=== PATIENT | female | born 1955 ===

== ENCOUNTER 2025-01-15 13:22 | Outpatient (AMB) | payer OTHER, SELFPAY ==
--- NOTE | 2025-01-15 13:31 | A.OFFVIS_ITS ---
Intake Visit Reasons: Occipital Neuralgia Allergies codeine Allergy (Unknown, Verified 01/11/25 08:01) Unknown Medication List - Last Reconciled 01/15/25 by Judah Cardona MD cyclobenzaprine 5 mg PO BEDTIME PRN gabapentin 300 mg PO BID insulin glargine (Lantus Solostar U-100 Insulin) 20 units subcut QAM levothyroxine 50 mcg PO DAILY lisinopril 10 mg PO DAILY meloxicam 15 mg PO DAILY tramadol 50 mg PO Q6H PRN HPI Comments Details: this is a 69-year-old woman with a history of hypertension, type 2 diabetes, hypothyroidism, fibromyalgia and osteoarthritis with multiple joint pain specially in her knees and lower back who developed sharp shooting brief right posterior occipital pains about 2 months ago. They lasted for a week and have subsided. She gets some mild low-level throbbing sensations in the scalp mostly on the right side and on the top of the head and is concerned that the pain might come back. She was given right occipital nerve block that seemed to help for a few hours and then took ketorolac 10 mg daily for 5 days. There are no other associated symptoms. [facility] Medical History (Updated 01/15/25 @ 13:55 by Judah Cardona MD) Fibromyalgia Occipital neuralgia Review of Systems Const Reports headache(s) ENT Reports headache(s) and Reports neck pain Musc Reports abnormal gait, Reports back pain, Reports myalgias, Reports arthralgias and Reports neck pain Neuro Reports abnormal gait and Reports headache(s) Physical Exam Neuro Other: ?Mini Mental Status Exam Level of Consciousness:?Alert.? Orientation:?Knows correct year, month, date, day and season.?Knows correct city, county and state. Knows correct location and floor.? Registration:?Able to register 3 objects.? Attention:?Serial 7's performed accurately.? Recall:?Able to recall 3 out of 3 objects.? Language:?Normal spontaneous speech, fluency, repetition, naming, comprehension, reading, and writing.? Total Score:?30/30.? Neurological Abnormal neurological findings:??none.? Mental Status:?Alert and oriented X 3.?Normal attention, orientation, memory, and affect.? Cranial Nerves:?Pupils are equal, round and reactive to light. Fundoscopy shows normal disc bilaterally. External occular muscles are intact. Visual bailey are full, no ptosis. Face is symmetrical, no facial weakness or droop. Facial sensations are normal. Tongue protrudes in midline. Palate elevates s ymmetrically. Shoulder shrugging is normal.? Motor Examination:?Normal muscle tone, bulk and strength.?No atrophy or fasciculations.?No drift of the extended upper extremities.?Deep tendon reflexes are 2+.?Plantars are flexor.? Motor Strength:? Proximal Muscles (out of 5):?5 Distal Muscles (out of 5):?5 Neck Flexors (out of 5):?5 Neck Extensors (out of 5):?5 Deltoid (out of 5):?5 Biceps (out of 5):?5 Triceps (out of 5):?5 Serratus Anterior (out of 5):?5 Wrist Extensors (out of 5):?5 APB (out of 5):?5 Finger Spread (out of 5):?5 Ileopsoas (out of 5):?5 Quadriceps (out of 5):?5 Hamstrings (out of 5):?5 Tibialis Anterior (out of 5):?5 Peronei (out of 5):?5 EDB (out of 5):?5 Gastrocnemius (out of 5):?5 Straight Leg Raising:?90 degrees.? Sensory Exam:?Normal light touch, temperature, pinprick, vibration and joint-position sensations.?Rhomberg sign is absent.? Coordination:?No ataxia,?no titubation,?[id number], [id number] test, and rapid alternating movements were normal.? Gait Exam:? She is in a wheelchair today but can walk with a 4 prong cane.? Cerebellar Signs:?[id number] and deuk-[id number] is normal.?No dysdiadochokinesia.? Extrapyramidal System:?No tremor or?rigidity, normal facial expressions.?No bradykinesia. No bradyphrenia. Normal arm swing and posture. No propulsion or retropulsion.? Speech:?Normal,?no dysphasia or dysarthria.? General Examination GENERAL APPEARANCE:??normal,?in no acute distress?,?normal,?in no acute distress.? HEAD:??normocephalic,?atraumatic.? EYES:??sclera non-icteric,?conjunctiva clear.? EARS:??auditory canal clear,?tympanic membrane intact, clear.? NOSE:??no lesions.? ORAL CAVITY:??gums normal,?mucosa moist,?no lesions.? THROAT:??clear.? NECK/THYROID:??no cervical lymphadenopathy,?thyroid normal,?neck supple, full range of motion,?no carotid bruit.? SKIN:??no rashes,?no significant birthmarks.? HEART:??S1, S2 normal,?no murmurs?,?S1, S2 normal,?no murmurs.? LUNGS:??clear anteriorly and posteriorly?,?clear anteriorly and posteriorly.? CHEST:??no gross rib deformity,?clear to auscultation.? BACK:??normal exam of spine.? MUSCULOSKELETAL:??normal.? EXTREMITIES:??no edema?,?no edema.? PERIPHERAL PULSES:??normal.? PSYCH:??alert, oriented,?cognitive function intact,?cooperative with exam?,?alert, oriented,?cognitive function intact,?cooperative with exam.? Assessment & Plan Assessment & Plan (1) Fibromyalgia: Code(s): M79.7 - Fibromyalgia Category: Medical (2) Muscle tension headache: Comment: question right occipital neuralgia Code(s): G44.209 - Tension-type headache, unspecified, not intractable Category: Medical Plan amitriptyline 10mg hs Medications: New amitriptyline 10 mg PO BEDTIME 30 tabs 1RF 30 days Coding Level of Care Code New Pt Level 5 (00534) Diagnoses Fibromyalgia M79.7 Muscle tension headache G44.209
--- OUTSIDE RECORDS SUMMARY | 2025-01-15 18:42 | XMS_ITS | Clinical Summary ---
Author Organization [facility] [address] [facility] lding Address [address] [place] [address] Phone Care Team Providers Care Biological Plant Operator Name Role Phone Carline Brink MD Primary Care Prov ider Allergies Active Allergy Reactions Criticality Noted Date Comments Codeine 12/20/2005 Medications blood-glucose calib. control (BLOOD-GLUCOSE CALIBRAT CONTROL [facility]) USE DIRECTED 01/29/20 20 Active cyclobenzaprine (FLEXERIL) 5 mg tablet Take 1 Tablet by mouth daily as needed for Muscle spasms for up to 50 doses. 04/30/19 23 Active hydrocortisone (ANUSOL-HC) [address] 1 Suppository rectally 2 times daily for 10 days. 04/18/19 24 Active fluticasone propionate (FLONASE) 50 mcg/actuation nasal spray Administer 2 sprays into each nostril 1 (one) time each day. Shake gently. Before first use, prime pump. After use, clean tip and replace cap. 16 g 5 08/21/19 25 026 Active lisinopriL (PRINIVIL,ZESTR IL) 10 mg tablet Take 1 tablet (10 mg total) by mouth 1 (one) time each day. 90 tablet 1 09/21/19 25 Active blood-glucose meter (Accu-Chek Guide Glucose Meter) miscIndications :Type 2 diabetes mellitus with obesity USE DIRECTED TO TEST BLOOD SUGAR TWO (2) TIMES A DAY. E11.69 - REPLACES ONETOUCH 1 kit 09/26/19 25 Active blood sugar diagnostic (Accu-Chek Guide test strips) test stripIndication s:Type 2 diabetes mellitus with obesity USE DIRECTED TO TEST BLOOD SUGAR TWO (2) TIMES A DAY. E11.69 - REPLACES ONETOUCH 100 each 09/26/19 Active Accu-Chek Softclix LancetsIndicati ons:Type 2 diabetes mellitus with obesity USE DIRECTED TO TEST BLOOD SUGAR TWO (2) TIMES A DAY. E11.69 - REPLACES ONETOUCH 100 each 09/26/19 25 Active meloxicam (MOBIC) 15 mg tablet Take 1 tablet (15 mg total) by mouth 1 (one) time each day. 90 tablet 1 10/04/19 Active gabapentin (NEURONTIN) 300 mg capsule Take 1 capsule (300 mg total) by mouth 2 (two) times a day. 180 capsule 1 10/16/19 Active traMADoL (ULTRAM) 50 mg tabletIndicatio ns:Fibromyalgia ,Right shoulder pain, unspecified chronicity Take 1 tablet (50 mg total) by mouth every 6 (six) hours if needed (PAIN). Max Daily Amount: 200 mg 60 tablet 11/13/19 Active insulin glargine (Lantus U-100 Insulin) 100 unit/mL injection Inject 20 Units under the skin 1 (one) time each day in the morning. Inject daily as directed. 20 mL 2 12/04/19 Active pen needle, diabetic 32 gauge x 5/32 needle Inject under the skin 1 (one) time each day. USE TO INJECT INSULIN DIRECTED 90 each 12/04/19 Active levothyroxine (SYNTHROID, LEVOTHROID) 50 mcg tablet Take 1 tablet by mouth once daily 90 tablet 01/02/20 Active levothyroxine (SYNTHROID, LEVOTHROID) 50 mcg tablet Take 1 tablet (50 mcg total) by mouth 1 (one) time each day. 90 tablet 1 07/07/19 25 025 Discontinued Active Problems Problem Noted Date Diagnosed Date Microalbuminuria 05/21/2024 Primary hypertension 11/15/2023 Heart murmur 06/07/2022 Type 2 diabetes mellitus with obesity 02/15/2019 Overview (11/07/2024): 11/07/24 Regulatory IMO Update Hot flashes 09/04/2018 Hypothyroidism 08/14/2018 Pseudophakia 09/05/2017 Type 2 diabetes mellitus with hyperlipidemia 02/2016 Obesity (BMI 30-39.9) 08/07/2015 Chronic low back pain 06/25/2015 Fibromyalgia 06/25/2015 Primary osteoarthritis of both knees 06/25/2015 Encounters Date Type Department Care Team Description 01/14/2025 Telephone Adult [address] [phone] Carline Magaña MD 01/07/2025 Results Follow-Up [address] [phone] Vidhya Cheema PA 01/01/2025 3:55 PM EST Lab Draw Station [address] [phone] Hypothyroidism, unspecified type; Type 2 diabetes mellitus with hyperlipidemia (CMS/HCC V24, CMS/HCC V28); Anemia, unspecified type; Primary hypertension 01/01/2025 2:45 PM EST Office Visit [address] [phone] Vidhya Cheema PA Nonintractable headache, unspecified chronicity pattern, unspecified headache type (Primary Dx); Screening for malignant neoplasm of colon; Fibromyalgia; Hypothyroidism, unspecified type; Primary hypertension; Type 2 diabetes mellitus with hyperlipidemia (CMS/HCC V24, CMS/HCC V28); Microalbuminuria; Chronic low back pain, unspecified back pain laterality, unspecified whether sciatica present; Anemia, unspecified type from Last 3 Months Immunizations Immunization Administration Dates Next Due Pfizer SARS-CoV-2 COVID-19, mRNA, LNP-S, preservative free 06/10/2020 Pneumococcal polysaccharide 23 valent (Pneumovax 23) 2yo and older 03/09/2016 Tdap Tetanus diptheria acell ular pertussis (Boostrix; Adacel) 7yo and older 05/18/2024 Surgical History Surgery Date Site/Laterality Comments HYSTERECTOMY 2-1989 PROCEDURE: HISTORICAL HYSTERECTOMY; COMMENT: tumors CATARACT EXTRACTION 2015 PROCEDURE: HISTORICAL CATARACT REMOVAL; COMMENT: OU Medical History Medical History Date Comments Anemia, unspecified DX:Anemia, u nspecified DM2 (diabetes mellitus, type 2) [place] [place] [facility] [place] 12/08/2015 DX:DM2 (diabetes mellitus, type 2) ([facility]) DM2 (diabetes mellitus, type 2) [place] [place] [facility] [place] 12/08/2015 DX:DM2 (diabetes mellitus, type 2) ([facility]) Diabetes mellitus type 2 in obese 03/10/2016 DX:Diabetes mellitus type 2 in obese Type 2 diabetes mellitus wit h hyperlipidemia ([facility] [place] [facility] [place]) 03/10/2016 DX:Type 2 diabetes mellitus with hyperlipidemia ([facility]) Hypothyroidism 08/14/2018 DX:Hypothyroidis m Weight loss DX:Weight loss Fatigue DX:Fatigue Primary osteoarthritis of both knees DX:Primary osteoarthritis of both knees Primary hypertension 09/20/2023 DX:Primary hypertension Osteoarthritis of back Family History Medical History Relation Name Comments Diabetes Brother 1 Diabetes Brother 2 Hypertension Brother 2 Diabetes Brother 3 Glaucoma Brother 3 Hypertension Brother 3 Lung cancer Brother 3 Hypertension Brother 4 No Known Problems Brother 5 Asthma Daughter Thyroid disease Daughter Other cancer Father mouth No Known Problems Maternal Grandfather No Known Problems Maternal Grandmother Lung cancer Mother No Known Problems Paternal Grandfather No Known Problems Paternal Grandmother Diabetes Sister 1 Glaucoma Sister 1 Hypertension Sister 1 Diabetes Sister 2 Hypertension Sister 2 Asthma Son Blindness Neg Hx Breast cancer Neg Hx Cataracts Neg Hx Macular degeneration Neg Hx Strabismus Neg Hx Relation Name Status Comments Brother 1 Brother 2 Brother 3 Alive Brother 4 Alive Brother 5 Alive Daughter Alive Father Maternal Grandfather Maternal Grandmother Mother Paternal Grandfather Paternal Grandmother Sister 1 Sister 2 Alive Son Alive Social History Tobacco Use Types Packs/Day Years Used Date Smoking Tobacco: Never Smokeless Tobacco: Never Tobacco Cessation:Counseling Given: Not Answered Alcohol Use Standard Drinks/Week Comments Yes 0 (1 standard drink = 0.6 oz pur e alcohol) rarely Housing Instability Answer Date Recorde d Are you worried that in the next 2 months you may not have stable housing? No 07/30/2024 Food Access & Nutrition Answer Date Rec orded Do you have access to a vari ety of food including fruits and vegetables? Yes 07/30/2024 Health Literacy Answer Date Recorded How often do you need to hav e someone help you when you read instructions, pamphlets, or other written material from your doctor or pharmacy? Never 07/30/2024 Caregiver: How often do you need to have someone help you when you read instructions, pamphlets, or other written material from your doctor or pharmacy? Not on file 07/30/2024 Financial Risk Answer Date Recorded How hard is it for you to pa y for the very basics like food, housing, medical care, and air conditioning / heating? Not very hard 07/30/2024 Transportation Answer Date Recorded Has the lack of transportati on kept you from meetings, work, or from getting things needed for daily living? No Has the lack of transportati on kept you from medical appointments or from getting medications? No 07/30/2024 Social Isolation Answer Date Recorded How often do you feel lonely or isolated from th ose around you? Never 07/30/2024 Food Risk Answer Date Recorded Within the past 12 months we worried whether our food would run out before we got money to buy more. Never true 07/30/2024 Within the past 12 months th e food we bought just didn't last and we didn't have money to get more. Never true 07/30/2024 Dependent Care Answer Date Recorded Do you need help finding or paying for care for your loved ones. For example, children's tutor nursery or elderly care for an older adult? No 07/30/2024 Education Answer Date Recorded Do you think completing more education or training, like finishing a GED, going to college, or learning a trade, would be helpful for you? No 07/30/2024 Employment and Income Answer Date Recor ded During the last four weeks, have you been actively looking for work? No 07/30/2024 Living Situation Answer Date Recorded What is your living situation? Unrecognized valu e 07/30/2024 Comments No Sex and Gender Information Value Date Recorded Sex Assigned at Not on file Legal Sex Female 10:28 AM EST Gender Identity Not on file Sexual Orientation Not on file Obstetrics History Para Term AB IAB SAB Ectopic Multiple Livin g Live Births 2 2 2 2 Date Outcome GA Total Labor Labor/2nd/3rd Weight Sex Type Anes PTL Maisha A1 A5 Name Clin Term Term Last Filed Vital Signs Vital Sign Reading Time Taken Comments Blood Pressure 130/70 01/01/2025 3:16 PM EST Pulse 76 01/01/2025 2:44 PM EST Temperature 36.9 C (98.4 F) 10/13/2024 6:42 PM EDT Respiratory Rate 16 10/13/2024 6:42 PM EDT Oxygen Saturation 98% 01/01/2025 2:44 PM EST Inhaled Oxygen Concentration - - Weight 70.9 kg (156 lb 6.4 oz) 01/01/2025 2:44 P M EST Height 160 cm (5' 3 ) 10/13/2024 12:14 PM EDT Body Mass Index 27.71 10/13/2024 12:14 PM EDT Plan of Treatment Upcoming Encounters Date Type Department Care Team (Late st Contact Info) Description 03/15/2025 1:00 PM EST Office Visit [facility] Hematology Oncology [address] [place] [phone] Flora Villanueva, DO [address] [place] [address] 05/28/2025 1:40 PM EDT Appointment Radiology Department - [address] [phone] Health Maintenance Due Date Last Done Comments Colorectal Cancer Screening: Colonoscopy 1955 Drug Screen 1955 Naloxone Order 1955 Opioid Substance Agreement 1955 Diabetes: Annual Foot Exam 12/10/1963 Diabetes: Annual Retina Eye Exam 12/10/1963 RSV Immunization Adult Patients (1 - Risk 50-74 years 1-dose series) 12/10/2003 Zoster Vaccines (1 of 2) 12/10/2003 Pneumococcal Vaccine: 50+ Years (2 of 2 - PCV) 03/09/2017 03/09/2016 COVID-19 Vaccine (3 - season) 2024 06/10/2020, 05/20/2020 Influenza Vaccine (#1) 2024 Pain Assessment 01/29/2025 07/30/2024 Diabetes: Annual Urine Albumin-Creatinine Ratio (uACR) 05/18/2025 05/18/2024, 09/05/2020 Diabetes: Blood Sugar Control Test (HGBA1C) 07/01/2025 01/01/2025, 08/20/2024, 05/18/2024, Additional history exists Medicare Annual Wellness Visit 07/30/2025 07/30/2024 Social Influencers of Health Screening 07/30/2025 07/30/2024 Falls Risk Assessment 10/13/2025 10/13/2024 Diabetes: Annual GFR (Glomerular Filtration Rate) 01/01/2026 01/01/2025, 10/13/2024, 03/27/2024, Additional history exists Hypertension/CHF/CAD Annual BMP Blood Test 01/01/2026 01/01/2025, 10/13/2024, 03/27/2024, Additional history exists Breast Cancer Screening 05/21/2026 05/22/19, 08/01/2018, 07/28/2017, Additional history exists Cholesterol Screening (Lipid Panel) 03/27/2029 03/27/2024, 09/21/2023, 09/21/2023 Osteoporosis Screening (Bone Density Screening) 07/22/2030 07/22/2020 DTaP,Tdap,and Td Vaccines (2 - Td or Tdap) 05/18/2034 05/18/2024 Hepatitis C Screening Completed 06/25/2015 Depression Screening Completed 07/30/2024 HIB Vaccines Aged Out No longer eligi ble based on patient's age to complete this topic HPV Vaccines Aged Out No longer eligi ble based on patient's age to complete this topic Hepatitis A Vaccines Aged Out No long er eligible based on patient's age to complete this topic Hepatitis B Vaccines Aged Out No long er eligible based on patient's age to complete this topic IPV Vaccines Aged Out No longer eligi ble based on patient's age to complete this topic MMR Vaccines Aged Out No longer eligi ble based on patient's age to complete this topic Meningococcal ACWY Vaccine Aged Out N o longer eligible based on patient's age to complete this topic Meningococcal B Vaccine Aged Out No l onger eligible based on patient's age to complete this topic RSV Immunization Patients Under 20 months Aged Out No longer eligible based on patient's age to complete this topic Varicella Vaccines Aged Out No longer eligible based on patient's age to complete this topic Procedures Procedure Name Priority Date/Time Associated Diagnosis Comments CBC WITH AUTO DIFFERENTIAL Routine 01/01/2025 3:51 PM EST Anemia, unspecified type IRON AND TIBC Routine 01/01/2025 3:51 PM EST Anemia, unspecified type COMPREHENSIVE METABOLIC PANEL Routine 01/01/2025 3:51 PM EST Primary hypertension CBC AND DIFFERENTIAL Routine 01/01/2025 3:51 PM EST Anemia, unspecified type HEMOGLOBIN A1C Routine 01/01/2025 3:51 PM EST Type 2 diabetes mellitus with hyperlipidemia (CMS/HCC V24, CMS/HCC V28) THYROID STIMULATING HORMONE WITH REFLEX TO FREE T4 AND FREE T3 Routine 01/01/2025 3:51 PM EST Hypothyroidism, unspecified type HC INJECTION(S) ANESTHETIC AGENT(S) AND/OR STEROID OTHER PERIPHERAL NERVE/BRANCH Routine 10/16/2024 2:15 PM EDT UT INJECTION ANESTHETIC AGENT GREATER OCCIPITAL NERVE Routine 10/16/2024 2:15 PM EDT MG MAMMO DIGITAL SCREENING W LUIS FERNANDO BILAT Routine 05/21/2024 1:53 PM EDT Screening mammogram for breast cancer MICROALBUMIN CREATININE URINE RATIO Routine 05/18/2024 1:57 PM EDT Type 2 diabetes mellitus with hyperlipidemia (CMS/HCC V24, CMS/HCC V28) LIPID PANEL WITH REFLEX TO DIRECT LDL Routine 03/27/2024 11:23 AM EST Primary hypertension DXA BONE DENSITY STUDY 1+ SITS AXIAL SKEL Routine 07/22/2020 2:07 PM EDT Type 2 diabetes mellitus with other specified complication (CMS/HCC V24, CMS/HCC V28) Hyperlipidemia, unspecified HM HEPATITIS C SCREENING Routine 06/25/2015 from Last 3 Months or Most Recently Relevant to Health Maintenance Results * Thyroid stimulating hormone with reflex to free t4 and free t3 (01/01/2025 3:51 PM EST) Pathologist [facility] TSH 0.66 0.40 - 4.00 mcIU/mL 01/01/2025 5:56 PM [facility] Blood Venous blood specimen / Unknown Venipuncture / Unknown 01/01/2025 3:51 PM EST 01/01/2025 3:51 PM EST us Vidhya LARSEN LAB BLOOD ORDERABLES Final Result [facility] [address] [place] [address], * (ABNORMAL) CBC auto differential (01/01/2025 3:51 PM EST) [facility] WBC 6.4 4.8 - 10.8 K/mcL LAB HEMETOLOGY METHOD 01/01/2025 5:48 PM [facility] RBC 3.70(L) 3.80 - 4.80 M/mcL LAB HEMETOLOGY METHOD 01/01/2025 5:48 PM [facility] Hemoglobin 10.4(L) 11.5 - 16.0 g/dL LAB HEMETOLOGY METHOD 01/01/2025 5:48 PM [facility] Hematocrit 33.4(L) 35.0 - 47.0 % LAB HEMETOLOGY METHOD 01/01/2025 5:48 PM [facility] MCV 91.5 79.0 - 98.0 FL LAB HEMETOLOGY METHOD 01/01/2025 5:48 PM [facility] MCH 28.5 27.0 - 32.0 pcg LAB HEMETOLOGY METHOD 01/01/2025 5:48 PM [facility] MCHC 31.1(L) 32.0 - 37.0 g/dL LAB HEMETOLOGY METHOD 01/01/2025 5:48 PM [facility] RDW 16.8(H) 11.0 - 15.0 % LAB HEMETOLOGY METHOD 01/01/2025 5:48 PM [facility] Platelets 248 130 - 400 K/mcL LAB HEMETOLOGY METHOD 01/01/2025 5:48 PM [facility] MPV 10.9 7.0 - 11.0 FL LAB HEMETOLOGY METHOD 01/01/2025 5:48 PM [facility] NRBC 0.0 <1.0 % LAB HEMETOLOGY METHOD 01/01/2025 5:48 PM [facility] NRBC Absolute 0.00 <0.10 K/mcL LAB HEMETOLOGY METHOD 01/01/2025 5:48 PM [facility] Neutrophils Relative 73.2 % LAB HEMETOLOGY METHOD 01/01/2025 5:48 PM [facility] Lymphocytes Relative 16.2 % LAB HEMETOLOGY METHOD 01/01/2025 5:48 PM [facility] Monocytes Relative 7.9 % LAB HEMETOLOGY METHOD 01/01/2025 5:48 PM [facility] Eosinophils Relative 2.0 % LAB HEMETOLOGY METHOD 01/01/2025 5:48 PM [facility] Basophils Relative 0.5 % LAB HEMETOLOGY METHOD 01/01/2025 5:48 PM [facility] Immature Granulocytes Relative 0.2 % LAB HEMETOLOGY METHOD 01/01/2025 5:48 PM [facility] Neutrophils Absolute 4.70 1.50 - 7.00 K/mcL LAB HEMETOLOGY METHOD 01/01/2025 5:48 PM [facility] Lymphocytes Absolute 1.04 1.00 - 5.00 K/mcL LAB HEMETOLOGY METHOD 01/01/2025 5:48 PM EST [facility] Monocytes Absolute 0.51 0.20 - 1.00 K/mcL LAB HEMETOLOGY METHOD 01/01/2025 5:48 PM EST [facility] Eosinophils Absolute 0.13 0.00 - 0.50 K/mcL LAB HEMETOLOGY METHOD 01/01/2025 5:48 PM EST [facility] Basophils Absolute 0.03 0.00 - 0.20 K/mcL LAB HEMETOLOGY METHOD 01/01/2025 5:48 PM EST [facility] Immature Granulocytes Absolute 0.01 0.00 - 0.03 K/mcL LAB HEMETOLOGY METHOD 01/01/2025 5:48 PM EST [facility] Blood Venous blood specimen / Unknown Venipuncture / Unknown 01/01/2025 3:51 PM EST 01/01/2025 3:51 PM EST us Vidhya LARSEN LAB BLOOD ORDERABLES Final Result [facility] [address] [place] [address], [place] [phone] * Iron and TIBC (01/01/2025 3:51 PM EST) Iron 63 40 - 150 mcg/dL 01/01/2025 5:58 PM EST [facility] TIBC 267 250 - 450 mcg/dL 01/01/2025 5:58 PM EST [facility] Iron Saturation 24 15 - 50 % 5:58 PM EST [facility] Blood Venous blood specimen / Unknown Venipuncture / Unknown 01/01/2025 3:51 PM EST 01/01/2025 3:51 PM EST Vidhya LARSEN LAB BLOOD ORDERABLES Final Result [facility] [address] [place] [address], [place] [phone] * Hemoglobin A1c (01/01/2025 3:51 PM EST) [facility] Hemoglobin A1C 6.3 <6.5 % LAB CHEMISTRY METHOD 01/01/2025 9:59 PM EST [facility] Mean Bld Glu Estim. 134 mg/dL LAB CHEMISTRY METHOD 01/01/2025 9:59 PM [facility] Blood Venous blood specimen / Unknown Venipuncture / Unknown 01/01/2025 3:51 PM EST 01/01/2025 3:51 PM EST Vidhya LARSEN LAB BLOOD ORDERABLES Final Result [facility] [address] [place] [address], [place] [phone] * (ABNORMAL) Comprehensive metabolic panel (01/01/2025 3:51 PM EST) [facility] Sodium 140 133 - 145 mmol/L 01/01/2025 6:01 PM [facility] Potassium 4.5 3.5 - 5.5 mmol/L 01/01/2025 6:01 PM [facility] Chloride 103 96 - 110 mmol/L 01/01/2025 6:01 PM [facility] CO2 30 21 - 32 mmol/L 01/01/2025 6:01 PM [facility] Anion Gap 7 3 - 11 01/01/2025 6:01 PM [facility] Glucose 155(H) 70 - 100 mg/dL 01/01/2025 6:01 PM [facility] BUN 17 5 - 25 mg/dL 01/01/2025 6:01 PM [facility] Creatinine 0.90 0.50 - 1.10 mg/dL 01/01/2025 6:01 PM [facility] eGFR 68 >=60 mL/min/1. 73m2 01/01/2025 6:01 PM [facility] Comment:Calculation based on the Chronic Kidney Disease Epidemiology Collaboration (CKD-EPI) equation refit without adjustment for race. BUN/Creatinine Ratio 18.9 01/01/2025 6:01 PM [facility] Calcium 8.7 8.5 - 10.5 mg/dL 01/01/2025 6:01 PM [facility] AST (SGOT) 20 10 - 42 unit/L 01/01/2025 6:01 PM [facility] ALT (SGPT) 14 10 - 60 unit/L 01/01/2025 6:01 PM [facility] Alkaline Phosphatase 75 42 - 121 unit/L 01/01/2025 6:01 PM [facility] Total Protein 7.5 6.0 - 8.0 g/dL 01/01/2025 6:01 PM [facility] Albumin 3.9 3.2 - 5.0 g/dL 01/01/2025 6:01 PM [facility] Total Bilirubin 0.2 0.0 - 1.4 mg/dL 01/01/2025 6:01 PM [facility] Blood Venous blood specimen / Unknown Venipuncture / Unknown 01/01/2025 3:51 PM EST 01/01/2025 3:51 PM EST us Vidhya LARSEN LAB BLOOD ORDERABLES Final Result [facility] [address] [place] [address], * UT INJECTION ANESTHETIC AGENT GREATER OCCIPITAL NERVE, HC INJECTION(S) ANESTHETIC AGENT(S) AND/OR STEROID OTHER PERIPHERAL NERVE/BRANCH (10/16/2024 2:15 PM EDT) Chico Mclean MD - 10/16/2024 2:15 PM EDT Chico Hines MD 10/16/2024 2:17 PM Nerve Block Date/Time: 10/16/2024 2:15 PM Performed by: Chico Hines MD Authorized by: Chico Hines MD Consent: Consent obtained: Verbal Consent given by: Patient Risks discussed: Allergic reaction, infection, nerve damage, swelling, unsuccessful block, pain, bleeding and intravenous injection [place] protocol: Patient identity confirmed: Verbally with patient Indications: Indications: Pain relief Location: Body area: Head Head nerve: Greater occipital Laterality: Right Pre-procedure details: Skin preparation: Alcohol Skin anesthesia: Skin anesthesia method: None Procedure details: Block needle gauge: 25 G Anesthetic injected: Lidocaine 1% WITH epi Steroid injected: None Additive injected: None Injection procedure: Anatomic landmarks identified, anatomic landmarks palpated, incremental injection, introduced needle and negative aspiration for blood Paresthesia: None Post-procedure details: Dressing: None Outcome: Pain relieved Procedure completion: Tolerated well, no immediate complications Chico Hines MD IN CLINIC/BEDSIDE ORDERABLES Fin al Result * MG Mammo Digital Screening w Luis Fernando bilat (05/21/2024 1:53 PM EDT) Anatomical Region Laterality Modality Breast Bilateral Mammography 05/22/2024 8:14 AM EDT Impressions 05/22/2024 9:25 AM EDT Benign. BI-RADS CATEGORY: 1 - NEGATIVE RECOMMENDATION: Screening bilateral mammogram is recommended in 1 year. Mammo Location: [facility], [address] [place] [address], [phone], . -------- FINAL REPORT -------- Dictated By: Marily Mckeon Dictated Date: 05/22/2024 08:14 ET Assigned Physician: Marily Mckeon Reviewed and Electronically Signed By: Marily Mckeon Signed Date: 05/22/2024 09:25 ET Workstation ID: [id number] Transcribed By: Self Edit Transcribed Date: 05/22/2024 08:16 ET Narrative 05/22/2024 9:25 AM EDT CLINICAL: 68 years old, Female, routine annual exam. COMPARISON: Mammograms dating back to 06/29/2016 with most recent of 08/01/2018. TECHNIQUE: Bilateral MLO and CC views were obtained digitally with 3-D mammogram (digital breast tomosynthesis). Computer-aided detection was utilized in evaluation of this exam (CAD). FINDINGS: There is no evidence of suspicious mass or architectural distortion. No worrisome calcifications are evident. There has been no significant change from prior exam(s). BREAST DENSITY: B - There are scattered areas of fibroglandular density. Procedure Note Marily Mckeon MD - 05/22/2024 CLINICAL: 68 years old, Female, routine annual exam. COMPARISON: Mammograms dating back to 06/29/2016 with most recent of08/01/2018. TECHNIQUE: Bilateral MLO and CC views were obtained digitally with 3-Dmammogram (digital breast tomosynthesis). Computer-aided detection wasutilized in evaluation of this exam (CAD). FINDINGS: There is no evidence of suspicious mass or architectural distortion. Noworrisome calcifications are evident. There has been no significantchange from prior exam(s). BREAST DENSITY: B - There are scattered areas of fibroglandular density. IMPRESSION: Benign. BI-RADS CATEGORY: 1 - NEGATIVE RECOMMENDATION: Screening bilateral mammogram is recommended in 1 year. Mammo Location: [facility], [address] [place] [address], [address], . -------- FINAL REPORT -------- Dictated By: Marily Mckeon Dictated Date: 05/22/2024 08:14 ET Assigned Physician: Marily Mckeon Reviewed and Electronically Signed By: Marily Mckeon Signed Date: 05/22/2024 09:25 ET Workstation ID: [id number] Transcribed By: Self Edit Transcribed Date: 05/22/2024 08:16 ET us Vidhya LARSEN IMG BI PROCEDURES Final Re sult * (ABNORMAL) Microalbumin creatinine urine ratio (05/18/2024 1:57 PM EDT) Creatinine, Urine 439.0 mg/dL LAB CHEMISTRY METHOD 05/18/2024 4:54 PM EDT [facility] Microalb, Ur 121.0(H) 0.0 - 29.0 mg/L LAB CHEMISTRY METHOD 05/18/2024 4:54 PM EDT [facility] Microalb/Crea t Ratio 28 <30 mg/g creat LAB CHEMISTRY METHOD 05/18/2024 4:54 PM EDT [facility] Urine Urine specimen from urethra / Unknown Non-blood Collection / Unknown 05/18/2024 1:57 PM EDT 05/18/2024 1:57 PM EDT us Vidhya LARSEN LAB URINE ORDERABLES Final Result [facility] [address] [place] [address], * (ABNORMAL) Lipid panel with reflex to direct LDL (03/27/2024 11:23 AM EST) Cholesterol 227(H) 0 - 200 mg/dL LAB CHEMISTRY METHOD 03/27/2024 4:26 PM [facility] Triglycerides 245(H) 0 - 150 mg/dL LAB CHEMISTRY METHOD 03/27/2024 4:26 PM [facility] HDL 45 >=40 mg/dL LAB CHEMISTRY METHOD 03/27/2024 4:26 PM EST [facility] LDL Calculated 133(H) 0 - 100 mg/dL LAB CHEMISTRY METHOD 03/27/2024 4:26 PM [facility] VLDL Cholesterol Leo 49 mg/dL LAB CHEMISTRY METHOD 03/27/2024 4:26 PM [facility] Non HDL Chol. (LDL+VLDL) 182(H) <145 mg/dL LAB CHEMISTRY METHOD 03/27/2024 4:26 PM [facility] Chol/HDL Ratio 5.0(H) 0.0 - 4.4 LAB CHEMISTRY METHOD 03/27/2024 4:26 PM EST [facility] Blood Venous blood specimen / Unknown Venipuncture / Unknown 03/27/2024 11:23 AM EST 03/27/2024 11:23 AM EST us Carline Brink MD LAB BLOOD ORDERABL ES Final Result [facility] [address] [place] [address], * DXA BONE DENSITY STUDY 1+ SITS AXIAL SKEL (07/22/2020 2:07 PM EDT) Anatomical Region Laterality Modality Bone Densitometr y 06/04/2020 3:21 PM EDT Narrative 07/22/2020 3:19 PM EDT BONE DENSITY Lumbar Spine T-score is -0.9 (SD relative to 20-29 y/o adult) Z-score is +1.0 (SD relative to age matched peers) This is normal by criteria defined by the WHO. Left Hip T-score is -0.6 Z-score is +0.3 This is normal by criteria defined by the WHO. Impression: Based on the World Health Organization criteria, Damaris Chavez should be classified as having normal bone density. The [facility] Department of Internal Medicine recommends using National Osteoporosis Foundation (NOF) guidelines in treatment decisions related to osteoporosis. NOF guidelines suggest considering treatment for postmenopausal women and men aged 50 or older presenting with the following: History of hip or vertebral fracture. T-score less than or equal to -2.5 (DXA) at the femoral neck, total hip, or spine, after appropriate evaluation to exclude secondary causes. Low bone mass (T-score between -1.0 and -2.5 at the femoral neck or spine) AND a 10-year probability of a hip fracture greater than or equal to 3% OR a 10-year probability of a major osteoporosis-related fracture greater than or equal to 20% based on the [place]-adapted WHO algorithm Please note that all treatment decisions require clinical judgment and consideration of individual patient factors, including patient preferences, co-morbidities, previous drug use, risk factors not captured in the FRAX model (e.g., frailty, falls, vitamin D deficiency, increased bone turnover, interval significant decline in bone density) and possible under- or over-estimation of fracture risk by FRAX. Procedure Note Germain Hammond MD - 01/26/2022 BONE DENSITY Lumbar Spine T-score is -0.9 (SD relative to 20-29 y/o adult) Z-score is +1.0 (SD relative to age matched peers) This is normal by criteria defined by the WHO. Left Hip T-score is -0.6 Z-score is +0.3 This is normal by criteria defined by the WHO. Impression: Based on the World Health Organization criteria, Damaris Chavez should beclassified as having normal bone density. The [facility] Department of Internal Medicine recommendsusing National Osteoporosis Foundation (NOF) guidelines in treatmentdecisions related to osteoporosis. NOF guidelines suggest consideringtreatment for postmenopausal women and men aged 50 or older presentingwith the following: History of hip or vertebral fracture. T-score less than or equal to -2.5 (DXA) at the femoral neck, total hip,or spine, after appropriate evaluation to exclude secondary causes. Low bone mass (T-score between -1.0 and -2.5 at the femoral neck or spine)AND a 10-year probability of a hip fracture greater than or equal to 3% ORa 10-year probability of a major osteoporosis-related fracture greaterthan or equal to 20% based on the [place]-adapted WHO algorithm Please note that all treatment decisions require clinical judgment andconsideration of individual patient factors, including patientpreferences, co-morbidities, previous drug use, risk factors not capturedin the FRAX model (e.g., frailty, falls, vitamin D deficiency, increasedbone turnover, interval significant decline in bone density) and possibleunder- or over-estimation of fracture risk by FRAX. us Autumn TATE DXA PROCEDURES Final Re sult * Hepatitis C Screening (06/25/2015) Pathologist [facility] Hepatitis C Screening abstracted us Historical Provider HEALTH MAINTENANCE Final Result from Last 3 Months or Most Recently Relevant to Health Maintenance Insurance [employer] Care Teams Biological Plant Operator Relationship Specialty Start Date End Date Carline Brink MD [address] [place] [id number] PCP - General Internal Medicine 07/21/20
--- OUTSIDE RECORDS SUMMARY | 2025-01-15 18:43 | XMS_ITS ---
Author Name [facility] Organization Unknown Care Team Organization Name Specialty Phone Email Start Date End [facility] 09/26/[address] [facility] JANES WALTERS Primary Care 12/15/2021 09/26/2023
--- OUTSIDE RECORDS SUMMARY | 2025-01-15 18:43 | XMS_ITS | Encounter Summary ---
Author Organization [facility] Address [address] [place] [address] Care Team Providers Care Wearing Apparel Assembler Name Role Phone Carline Brink MD Primary Care Prov ider Reason for Visit * Reason Onset Date Comments Results 01/14/2025 Encounter Details Date Type Department Care Team ([facility] st Contact Info) Description 01/14/2025 Telephone Adult Medicine [facility] [address] [place] [phone] Carline Brink MD [address] [place] [address] Social History Tobacco Use Types Packs/Day Years Used Date Smoking Tobacco: Never Smokeless Tobacco: Never Alcohol Use Standard Drinks/Week Comments Yes 0 [...] care for your loved ones. For example, child protective services social worker or elderly care for an older adult? [...] on file Sexual Orientation Not on file documented as of this encounter Progress Notes * Thi Forrest MA - 01/15/2025 10:51 AM EST Spoke to pt * Santos Souza - 01/14/2025 3:47 PM EST Pt calling in regards to lab results from 01/01/25. Pls return call to [phone] (home) . Thx. documented in this encounter Plan of Treatment Upcoming Encounters Date Type Department Care Team (Late st Contact Info) Description 03/15/2025 1:00 PM EST Office Visit [facility] Hematology Oncology [address] [place] [address] Flora Villanueva, [address] [place] [address] 05/28/2025 1:40 PM EDT Appointment Radiology Department - [address] [phone] documented as of this encounter Visit Diagnoses Not on filedocumented in this encounter Additional Health Concerns Assessment Noted Time PHQ-9 Depression Total Score: 0 07/31/19 25 9:48 AM EDT documented as of this encounter Care Teams Wearing Apparel Assembler Relationship Specialty Start Date End Date Carline Brink MD [address] [place] [phone] PCP - General Internal Medicine 07/21/20 documented as of this encounter
--- OUTSIDE RECORDS SUMMARY | 2025-01-15 18:43 | XMS_ITS | Encounter Summary ---
Author Organization [facility] Address [address] [place] [address] Care Team Providers Care Egg Tester Name Role Phone Carline Brink MD Primary Care Prov ider Reason for Referral * Consultation (Routine) - Authorized Specialty Diagnoses / Procedures Referred By Contpepito t Referred To Contact Oncology / Hematology and Oncology Diagnoses Anemia, unspecified type Vidhya Cheema PA [address] [place], [place] Phone: tel: fax: Flora Villanueva, DO [address] [place] [address] Phone: tel: fax: Referral ID Status Reason Start Date Expiration Date Visits Requested Visits Authorized [id number] Authorized Specialty Services Required 01/07/2025 01/07/2026 1 1 Encounter Details Date Type Department Care Team (Late st Contact Info) Description 01/07/2025 Results Follow-Up Adult Medicine - [place] [address] [place] [phone] Vidhya Cheema PA [address] [place], [place] Social History Tobacco Use Types Packs/Day Years [...] for your loved ones. For example, child care giver or elderly care for an older adult? [...] Progress Notes * Thi Forrest MA - 01/10/2025 11:35 AM EST Spoke to pt * Thi Forrest MA - 01/09/2025 9:06 AM EST Attempted to call pt. Another person answered the phone and would not identify themself only statedshe was sleeping. * SUZIE Salvador - 01/07/2025 2:57 PM EST Please call patient and advise that her lab work showed some anemia. This has gotten worse comparedto 2 months ago. I have referred patient to hematology to have them further evaluate and work this up. They will contact patient for appt Rest of labs are stable. Thyroid normal range. A1c stable at 6.3 documented in this encounter Plan of Treatment Upcoming Encounters Date Type Department Care Team (Late st Contact Info) Description 03/15/2025 1:00 PM EST Office Visit [facility] Hematology Oncology [address] [place] [address] Flora Villanueva, [address] [place] [address] 05/28/2025 1:40 PM EDT Appointment Radiology Department - [address] [phone] Scheduled Referrals Name Type Priority Associated Diagnoses Order Schedule Ambulatory referral to Hematology / Oncology Outpatient Referral Routine Anemia, unspecified type 1 Occurrences starting 01/07/2025 until 01/07/2026 documented as of this encounter Visit Diagnoses Diagnosis Anemia, unspecified type- Primary documented in this encounter Additional Health Concerns Assessment Noted Time PHQ-9 Depression Total Score: 0 07/31/19 25 9:48 AM EDT documented as of this encounter Care Teams Egg Tester Relationship Specialty Start Date End Date Carline Brink MD [address] [place] [phone] PCP - General Internal Medicine 07/21/20 documented as of this encounter
== END 2025-01-15 13:50 | disposition home or self-care (01) ==
LOC: HO.HSM 13:23
PROVIDERS: PCP Internal Medicine; Visit Provider Psychiatry & Neurology Neurology
DX: M79.7 Fibromyalgia (principal); G44.209 Tension-type headache, unspecified, not intractable
CPT/HCPCS: 99205